=== PATIENT | male | born 1970 | race Caucasian/White ===

== ENCOUNTER 2017-02-08 10:02 | Emergency (ER) | payer OTHER ==
[~2017-02-08] VITALS: Ht 185.4 cm; Wt 131.5 kg
[2017-02-08] MEDS ORDERED: SODIUM CHLORIDE 0.9% 1000ML 1,000 ML IV SCH (13:15)
[2017-02-08 13:26] LABS: BASOPHILS % 0.4 % (0.0-1.0); EOSINOPHILS # (AUTO) 0.4 (0.0-0.4); EOSINOPHILS % 5.1 % (0.0-6.0); HEMATOCRIT 39.8 % (38.2-49.6); HEMOGLOBIN 13.7 g/dL (14.0-18.0); LYMPHOCYTES # (AUTO) 1.1 (1.0-3.2); LYMPHOCYTES % 15.1 % (18.0-39.1); MEAN CORPUSCULAR HEMOGLOBIN 30.5 pg (28-32); MEAN CORPUSCULAR HGB CONC 34.4 g/dL (31-35); MEAN CORPUSCULAR VOLUME 88.6 fL (81-99); MONOCYTES # (AUTO) 0.5 (0.2-0.8); MONOCYTES % 6.8 % (4.4-11.3); NEUTROPHILS # (AUTO) 5.1 (2.1-6.9); NEUTROPHILS % 72.2 % (38.7-80.0); PLATELET COUNT 214 x10e3/uL (140-360); RED BLOOD COUNT 4.49 x10e6/uL (4.3-5.7); RED CELL DISTRIBUTION WIDTH 13.6 % (11.7-14.4)
[2017-02-08 13:49] LABS: ALANINE AMINOTRANSFERASE 38 IU/L (0-55); ALBUMIN 3.9 g/dL (3.5-5.0); ALBUMIN/GLOBULIN RATIO 1.1 (0.8-2.0); ALKALINE PHOSPHATASE 69 IU/L (40-150); ANION GAP 12.8 mmol/L (8-16); BLOOD UREA NITROGEN 13 mg/dL (7-26); BUN/CREATININE RATIO 16 (6-25); CARBON DIOXIDE 27 mmol/L (22-29); CHLORIDE 104 mmol/L (98-107); CREATININE, SERUM 0.79 mg/dL (0.72-1.25); EST GLOMERULAR FILTRATION RATE > 60 ML/MIN (60-); GLUCOSE 84 mg/dL (74-118); POTASSIUM 3.8 mmol/L (3.5-5.1); SODIUM 140 mmol/L (136-145)
[2017-02-08 14:07] LABS: BILIRUBIN,URINE NEGATIVE (NEGATIVE); KETONES,URINE NEGATIVE (NEGATIVE); LEUKOCYTE ESTERASE ,URINE NEGATIVE (NEGATIVE); NITRITE,URINE NEGATIVE (NEGATIVE); PROTEIN,URINE DIPSTICK NEGATIVE (NEGATIVE); URINE UROBILINOGEN 0.2 mg/dL (0.2 - 1)
[2017-02-08 14:09] LABS: CLARITY,URINE CLEAR (CLEAR); COLOR,URINE YELLOW (YELLOW)
[2017-02-08 14:20] LABS: EPITHELIAL CELLS,URINE RARE /LPF
--- NOTE | 2017-02-08 15:34 | Diagnostic Imaging Report ---
PROCEDURE: CT ABDOMEN AND PELVIS WITH CONTRAST TECHNIQUE: The abdomen and pelvis were scanned utilizing a multidetector helical scanner from the diaphragm to the lesser trochanter after the IV administration of 100 cc of Isovue 370 and the oral administration of water. Coronal and sagittal multiplanar reformations were obtained. COMPARISON: None. INDICATIONS: RIGHT LOWER QUADRANT PAIN FINDINGS: LOWER THORAX: Moderate atherosclerotic calcification of the coronary arteries, which is greater than expected for the patient's age. Lung bases are clear. HEPATOBILIARY: The liver is enlarged, measuring 18.2 cm in the right mid clavicular line. Normal contour. No focal lesions. No biliary ductal dilation. Gallbladder is unremarkable. SPLEEN: Mild splenomegaly, measuring 15.4 cm in AP diameter. No focal lesions. PANCREAS: No focal masses or ductal dilatation. ADRENALS: 1.4 x 1.1 x 1.2 cm and 2.6 x 2.7 x 2.4 cm fat containing lesions in the right adrenal gland (series 2, images 32 and 33, and sagittal image 60, and 61), consistent with myelolipomas. Left adrenal gland is unremarkable. KIDNEYS/URETERS: No hydronephrosis, stones, or solid mass lesions. PELVIC ORGANS/BLADDER: Mild circumferential bladder wall thickening, likely due to under distention. Prostate is unremarkable. PERITONEUM / RETROPERITONEUM: No free air or fluid. LYMPH NODES: No lymphadenopathy. VESSELS: Atherosclerotic calcification of the abdominal aorta and iliac vessels. GI TRACT: No bowel dilation or evidence of obstruction. No pericolonic inflammatory changes. Appendix is well identified and normal in caliber (coronal image 59). Stomach is unremarkable. BONES AND SOFT TISSUES: No acute bony abnormalities. Diastases of the recti muscles anteriorly at the level of the umbilicus, with herniation of intra-abdominal fat and small bowel, which has a normal appearance. Supraumbilical fat containing midline abdominal wall hernia (sagittal image 53). Directly above, there is a small supraumbilical hernia containing a portion of the anterior part of the transverse colon, which has unremarkable appearance (sagittal image 56). IMPRESSION: 1. no acute abdominopelvic abnormalities. Specifically, no acute abnormal findings in the right lower quadrant to explain the patient's pain. 2. Diastases of the recti muscles anteriorly at the level of the umbilicus with herniation of intra-abdominal fat and small bowel, without evidence of incarceration or strangulation. Additional small supraumbilical hernias, one of which contains a portion of the transverse colon, with unremarkable appearance. 3. Hepatosplenomegaly. No focal lesions. 4. Atherosclerotic disease of the coronary arteries and abdominal aorta, which is greater than expected for the patient's age. 5. Incidental right adrenal gland myelolipomas. No further diagnostic imaging or followup is indicated. Justo Varghese M.D. Dictated by: Justo Varghese M.D. on 02/08/2017 at 15:42 Electronically approved by: Justo Varghese M.D. on 02/08/2017 at 15:42
[2017-02-08] MEDS ORDERED: SODIUM CHLORIDE 0.9% 50ML 50 ML ONE (16:50)
[2017-02-08] MEDS ORDERED: IOPAMIDOL 370 MG/ML 200 ML INFUS..BTL INJ ONE (16:50)
[2017-02-08 17:12] VITALS: BP 122/84
== END 2017-02-08 17:17 | disposition home or self-care (01) ==
LOC: ER 10:02
DX: R10.33 Periumbilical pain (principal); I10 Essential (primary) hypertension; E78.5 Hyperlipidemia, unspecified; E07.9 Disorder of thyroid, unspecified
CPT/HCPCS: 36415; 74177; 80053; 81001; 83605; 85025; 87086; 99283; J7030; Q9967